=== PATIENT | male | born 1950 | race Two or more races ===

== ENCOUNTER → 2016-07-08 | Day surgery (SDC) | payer BC ==
[2016-07-08] VITALS (8 sets, daily range): BP systolic 125–190; BP diastolic 64–91
[~2016-07-08] VITALS: Ht 165.1 cm; Wt 69.9 kg
[~2016-07-08] MED LIST: ASPIRIN81 MG ORAL; ATORVASTATIN CA20 MG ORAL; Avastin 10mg Inj IVITRE ONE; BSS 15ml BTL ONE; BSS 500ml btl ONE; Bupivacaine 0.75% 30ml vial INJ ONE; CARVEDILOL3.125 MG ORAL; CLOPIDOGREL75 MG ORAL; Dexamethasone 4mg/ml vial ONE; EPINEPHrine 1mg/1ml Amp ONE; GLIMEPIRIDE4 MG ORAL; Goniosol 2.5% Opth Soln - 15ml ONE; Indocyanine Green 25mg Inj INJ ONE; JANUVIA25 MG ORAL; Kenalog-40 1ml Vial ONE; LISINOPRIL40 MG ORAL; LR 1000ml 1,000 ML IV SCH; LR 1000ml 1,000 ML IVLG SCH; Labetalol 5mg/ml 20ml vial IV ONE; Lidocaine 2% MPF 5ml Vial INJ ONE; Maxitrol Opth Susp 5ml ONE; Midazolam 2mg/2ml Inj ONE; NS Irrig 1000ml ONE; Norco 5mg/325mg tab ORAL PRN; Povidone-Iodine 5% opth solution ONE; Propofol 10mg/ml 20ml IV ONE; STARLIX60 MG ORAL; Sodium Hyaluronate 14 mg/ml 0.85ml ONE; Sterile Water Irrig 1000ml IRRIG ONE; Tetracaine 0.5% Opth Soln ONE; fentaNYL 100 mcg/2 mL IV PRN
[2016-07-08] MEDS: Cyclopentolate 1% Opth Sol RIGHT EYE SCH ×3 (10:46→11:02)
[2016-07-08] MEDS: Phenylephrine 2.5% Op Soln RIGHT EYE SCH ×3 (10:46→11:02)
--- NOTE | 2016-07-08 13:37 | Pre-Procedure Note/Attestation ---
Pre-Procedure Note/Attestation Complete Prior to Procedure Planned Procedure: right Procedure Narrative: 23G PPV/MP/TERRANCE right eye Indications for Procedure Pre-Operative Diagnosis: macular pucker right eye Attestation I attest that I discussed the nature of the procedure; its benefits; risks and complications; and alternatives (and the risks and benefits of such alternatives ), prior to the procedure, with the patient (or the patient's legal access service representative). I attest that, if there was a reasonable possibility of needing a blood transfusion, the patient (or the patient's legal access service representative) was given the [facility] standardized written summary, pursuant to the Jean [place] Blood Safety Act ([place] Health and Safety Code # 1645, as amended). I attest that I re-evaluated the patient just prior to the surgery and that there has been no change in the patient's H&P, except as documented below: RONNY NGUYEN M.D. Jul 08, 2016 13:37
--- NOTE | 2016-07-08 14:24 | Anethesia Preoperative Eval ---
Anesthesia Pre-op PMH/ROS General Date of Evaluation: Jul 08, 2016 Time of Evaluation: 13:42 Anesthesiologist: Chen ASA Score: ASA 3 Mallampati Score Class I : Soft palate, uvula, fauces, pillars visible Class II: Soft palate, uvula, fauces visible Class III: Soft palate, base of uvula visible Class IV: Only hard plate visible Mallampati Classification: Class II Surgeon: Tania Diagnosis: Detached retina right eye Surgical Procedure: Vitrectomy, membrane peeling Family History: no anesthesia problems Allergies: Coded Allergies: METFORMIN (Verified Adverse Reaction, Mild, 07/08/16) dizziness Medications: see eMAR Past Medical History Cardiovascular: Reports: CAD, HTN, DE Pulmonary: Denies: COPD, ZENAIDA, asthma, other Gastrointestinal/Genitourinary: Denies: CRI, ESRD, GERD, other Neurologic/Psychiatric: Denies: CVA, TIA, dementia, depression/anxiety, other Endocrine: Reports: DM, Denies: hypothyroidism, other, steroids Hematology/Immune: Denies: DVT, anemia, bleeding disorder, other Musculoskeletal/Integumentary: Denies: DDD, DJD, OA, RA, edema, other PMH Narrative: HTN, DM, CAD (s/p DE and stent) PSxH Narrative: Coronary stent Anesthesia Pre-op Phys. Exam Physician Exam Last Vital Signs Date Time Temp Pulse Resp B/P Pulse Ox O2 Delivery O2 Flow Rate FiO2 07/08/16 10:10 97.3 61 15 190/91 99 Room Air Constitutional: NAD Neurologic: CN 2-12 intact Cardiovascular: RRR, no M/R/G Respiratory: CTA Gastrointestinal: S/NT/ND Airway Exam Mallampati Score: Class II MO: full ROM: full Dentures: upper Anesthesia Pre-op A/P Labs Wnl Studies Pre-op Studies: EKG - SR, 1st degree AVB, Septal infarct Risk Assessment & Plan Assessment: Detached retina right eye Plan: MAC, TIVA Status Change Before Surgery: No Pre-Antibiotics Drug: None LACEY SHAFER M.D. Jul 08, 2016 14:24
--- NOTE | 2016-07-08 14:25 | Immediate Post-Op Evaluation ---
Immediate Post-Op Evalulation Immediate Post-Op Evalulation Procedure: Vitrectomy, membrane peeling right eye Date of Evaluation: Jul 08, 2016 Time of Evaluation: 15:00 IV Fluids: 850 Blood Pressure Systolic: 137 Blood Pressure Diastolic: 71 Pulse Rate: 63 Respiratory Rate: 15 O2 Sat by Pulse Oximetry: 96 Temperature (Fahrenheit): 97.1 Pain Score (1-10): 0 Nausea: No Vomiting: No Complications No complication Patient Status: awake, patent, none Hydration Status: adequate Drug: None LACEY SHAFER M.D. Jul 08, 2016 14:25
--- NOTE | 2016-07-08 14:49 | Brief Operative Note ---
Immediate Post Operative Note Operative Note Pre-op Diagnosis: macular pucker right eye Procedure: 23G PPV/MP/TERRANCE right eye Post-op Diagnosis: macular pucker right eye Post-op Diagnosis: same as pre-op Findings: consistent w/pre-op dx studies Surgeon: Tania Anesthesia: local Specimen: none Complications: none Condition: stable Fluids: less than 500cc Estimated Blood Loss: none Drains: none Implant(s) used?: No RONNY NGUYEN M.D. Jul 08, 2016 14:49
--- NOTE | 2016-07-08 14:59 | 48 Hour Post Anesthesia Eval ---
Post Anesthesia Evaluation Procedure: Vitrectomy, membrane peeling right eye Date of Evaluation: Jul 08, 2016 Time of Evaluation: 15:30 Blood Pressure Systolic: 136 0: 70 Pulse Rate: 63 Respiratory Rate: 16 O2 Sat by Pulse Oximetry: 96 Airway: patent Nausea: No Vomiting: No Pain Intensity: 0 Hydration Status: adequate Cardiopulmonary Status: Stable Mental Status/LOC: patient returned to baseline Follow-up Care/Observations: As per surgery Post-Anesthesia Complications: No anesthetic complication Follow-up care needed: N/A LACEY SHAFER M.D. Jul 08, 2016 14:59
--- NOTE | 2016-07-08 19:39 | Operative Note - Dictated ---
DATE OF OPERATION: 07/08/2016 SURGEON: Scar Marin M.D. PREOPERATIVE DIAGNOSIS: Macular pucker, right eye. POSTOPERATIVE DIAGNOSIS: Macular pucker, right eye. NAME OF OPERATION: A 20-gauge pars plana vitrectomy, membrane peel, and intravitreal Avastin, right eye. ANESTHESIA: Local. BLOOD LOSS: None. COMPLICATIONS: None. INDICATIONS: The patient is a 65-year-old male with a history of blurred vision in his right eye. He presents with macular thickening and the macular pucker despite multiple treatments. The findings were discussed with the patient as well as the risks, benefits, and alternatives to the above-named procedure and the patient wishes to proceed with surgery. The patient understands that the risks include, but are not limited to, loss of vision and loss of the eye. Informed consent was obtained. Description Of The Procedure: On the day of the procedure, the right eye was noted to be the operative eye and marked. The patient received three sets of the standard preoperative eye drops in the holding area. The patient was then brought to the operating room with appropriate anesthesia monitors were placed. The right eye was again identified as the operative eye during the time-out. The nonoperative eye was patched and shielded. The operative eye then received a retrobulbar block consisting of a 1:1 mixture of 2% lidocaine without epinephrine and 0.75% bupivacaine for a total of 5 mL. The anesthesia and akinesia were noted to have been obtained. The operative eye was then prepped and draped in the usual sterile ophthalmic fashion. Eyelid speculum was placed in the operative eye. A 22-gauge cannulas were placed with infusion located inferotemporally. A standard three-port pars plana vitrectomy was then performed. The vitreous skirt was trimmed. ICG dye was then used to stain the macular pucker and the internal limiting membrane. The residual dye was then removed. Intra-ocular forceps were then used to peel the internal limiting membrane and the macular pucker from the surface of the retina. The 20-gauge cannulas were then removed. The wounds were sutured using 7-0 Vicryl. The wounds were checked for leakage and found to be water tight. The intraocular pressure were palpated and found to be within normal limits. The patient then received subconjunctival injections of vancomycin and dexamethasone as well as intravitreal Avastin. The lid speculum and drapes were then removed. Maxitrol and atropine were applied to the eye and the eye was patched and shielded. The patient tolerated the procedure well and was returned to the postoperative care area in good condition. Scar Marin M.D. DR: BULMARO JOB#: [id number] CC:
== END | disposition home or self-care (01) ==
LOC: SUR 09:56
DX: H35.371 Puckering of macula, right eye (principal); E11.9 Type 2 diabetes mellitus without complications; I12.9 Hypertensive chronic kidney disease with stage 1 through stage 4 chronic kidney disease, or unspecified chronic kidney disease; N18.9 Chronic kidney disease, unspecified; I25.10 Atherosclerotic heart disease of native coronary artery without angina pectoris; E78.00 Pure hypercholesterolemia, unspecified; I25.2 Old myocardial infarction; Z95.5 Presence of coronary angioplasty implant and graft; Z79.82 Long term (current) use of aspirin; Z88.8 Allergy status to other drugs, medicaments and biological substances
CPT/HCPCS: 67042; 82962; J0171; J0360; J0690; J1100; J2250; J2704; J3301; J3490; J9035; 94003; 94150